=== PATIENT | male | born 1960 | race African-American/Black ===

== ENCOUNTER 2017-10-08 11:50 | Inpatient (IN) | payer OTHER ==
[2017-10-08 12:32] VITALS: BMI 23.2
--- NOTE | 2017-10-08 12:43 | HP ---
COWS - Scale Resting Pulse: 0= CT 80 or Below Sweatin= Chills/Flushing Restless Observation: 0= Sits Still Pupil Size: 0= Normal to Room Light Bone or Joint Aches: 2= Severe Diffuse Aches Runny Nose/ Eye Tearin= Runny Nose/Eyes GI Upset > 30mins: 1= Stomach Cramp Tremor Observation: 1= Tremor [place], Not Seen Yawning Observation: 0= None Anxiety or Irritability: 2=Irritable/Anxious Goose Flesh Skin: 0=Smooth Skin COWS Score: 9 Admission ROS S - HPI Chief Complaint: I'm not ready to , I'm going to kill myself if I keep using Allergies/Adverse Reactions: Allergies Allergy/AdvReac Type Severity Reaction Status Date / Time sulfamethoxazole Allergy Hives Verified 10/08/17 12:36 [From Bactrim] trimethoprim [From Bactrim] Allergy Hives Verified 10/08/17 12:36 History of Present Illness: 57 yo gentleman here for detox from opiates. Patient reports being on [facility] program (70mg) until a month ago. Was also on pain management - recieved last 30 days supply 08/19/17 - was on mscontin 30 bid and oxycodone 20mg qid for over a year - states 'they found heroin ' in his urine and he was discharged. He was given a month of percocet 10/ #90 for thirty days on but told he needs to either detox or find pain management so he is seeking detox at this time. No seizure, no drinking alcohol. He states he discharged himself from the [facility] meth[facility] program. Exam Limitations: Clinical Condition - Ebola screening Have you traveled outside of the country in the last 21 days: No (N) Have you had contact with anyone from an Ebola affected area: No Have you been sick,other than usual withdrawal symptoms: No Do you have a fever: No - Review of Systems Constitutional: Loss of Appetite, Malaise, Night Sweats, Changes in sleep, Weakness EENT: reports: Nose Congestion Respiratory: reports: No Symptoms reported Cardiac: reports: Irregular Heart Rate GI: reports: Nausea, Poor Appetite, Indigestion : reports: Dysuria Musculoskeletal: reports: Back Pain, Joint Pain, Muscle Pain, Joint Stiffness Integumentary: reports: No Symptoms Reported Neuro: reports: Headache Endocrine: reports: No Symptoms Reported Hematology: reports: No Symptoms Reported Psychiatric: reports: Judgement Intact, Mood/Affect Appropiate, Orientated x3, Anxious Other Systems: Reviewed and Negative Patient History - Patient Medical History Hx Anemia: No Hx Asthma: No Hx Chronic Obstructive Pulmonary Disease (COPD): No Hx Cancer: No Hx Cardiac Disorders: Yes (bradycardia - irregular heart beat) Hx Congestive Heart Failure: No Hx Hypertension: Yes Hx Hypercholesterolemia: No Hx Pacemaker: No HX Cerebrovascular Accident: No Hx Seizures: No Hx Dementia: No Hx Diabetes: No Hx Gastrointestinal Disorders: No Hx Liver Disease: No Hx Genitourinary Disorders: No Hx Sexually Transmitted Disorders: No Hx Renal Disease (ESRD): No Hx Thyroid Disease: Yes (? hyperthryoid -given onetime pill two weeks ago) Hx Human Immunodeficiency Virus (HIV): No Hx Hepatitis C: No Hx Depression: No Hx Suicide Attempt: No Hx Bipolar Disorder: No Hx Schizophrenia: Yes (I had a case of schizophrenia after I came out of the ) Other Medical History: degenerative disc disease, chronic back and joint pain, - Patient Surgical History Past Surgical History: Yes Hx Orthopedic Surgery: Yes (bilateral hip replacement 2003, 2013; ) - PPD History Previous Implant?: Yes Documented Results: Positive w/proof PPD to be Administered?: No - Reproductive History Patient is a Female of Child Bearing Age (11 -55 yrs old): No (male) - Smoking Cessation Smoking history: Current every day smoker Have you smoked in the past 12 months: Yes Aproximately how many cigarettes per day: 3 Initiated information on smoking cessation: Yes 'Breaking Loose' booklet given: 10/08/17 (give on floor) - Substance & Tx. History Hx Alcohol Use: No Hx Substance Use: Yes Substance Use Type: Heroin Hx Substance Use Treatment: Yes (was on methadone program 100mg, detox) - Substances Abused heroin Route: Injection Frequency: 3-6 times per week Amount used: 4 bags Age of first use: 16 Date of Last Use: 10/07/17 Non-Rx Methadone Route: Oral Frequency: 1-2 times per week Amount used: 70mg Age of first use: 44 Date of Last Use: 10/06/17 Family Disease History - Family Disease History Family Disease History: [place]: Father ( - little contact), Mother ( , ), Other: Father, Mother, Brother (two - no contact), Sister (two ) Admission Physical Exam [facility] - Vital Signs Vital Signs: Vital Signs - 24 hr 10/08/17 12:31 Temperature 97.4 F L Pulse Rate 46 L Respiratory 20 Rate Blood Pressure 133/78 - Physical General Appearance: Yes: Nourished, Appropriately Dressed, Mild Distress, Anxious HEENTM: Yes: Hearing grossly Normal, Normal ENT Inspection, Normocephalic, Normal Voice, Muffled/Hoarse Voice Respiratory: Yes: Normal Breath Sounds, No Respiratory Distress Neck: Yes: No masses,lesions,Nodules, Supple Breast: Yes: Breast Exam Deferred Cardiology: Yes: Bradycardia, Irregular Abdominal: Yes: Flat, Soft Genitourinary: Yes: Frequency Back: Yes: Normal Inspection, Other (mild kyphosis, uses cane to walk) Musculoskeletal: Yes: full range of Motion, Gait Steady, Back pain, Joint Stiffness, Muscle Pain Extremities: Yes: Normal Inspection, Non-Tender Neurological: Yes: Fully Oriented, Alert, Normal Mood/Affect, Normal Response Integumentary: Yes: Normal Color, Warm, Track Delgado (no abscess noted - left arm ) Lymphatic: Yes: Within Normal Limits - Diagnostic (1) Opiate dependence Current Visit: Yes Status: Acute Qualifiers: Substance use status: uncomplicated Qualified Code(s): F11.20 - Opioid dependence, uncomplicated (2) Bradycardia Current Visit: Yes Status: Chronic (3) Hyperthyroidism Current Visit: Yes Status: Chronic (4) HTN (hypertension) Current Visit: Yes Status: Chronic Qualifiers: Hypertension type: essential hypertension Qualified Code(s): I10 - Essential (primary) hypertension Cleared for Admission [facility] - Detox or Rehab [facility] Level of Care: Medically Managed Detox Regimen/Protocol: Methadone [facility] Breath Alcohol Content Breath Alcohol Content: 0 Urine Drug Screen - Results Drug Screen Negative: No Urine Drug Screen Results: OPI-Opiates, MTD-Methadone
[2017-10-08] MEDS ORDERED: MAGNESIUM HYDROX 2400MG/30ML ORAL SUSPENSION 30 ML CUP PO PRN (12:58)
[2017-10-08] MEDS ORDERED: P-EPHED 60MG/TRIPROLIDI 2.5MG TABLET PO PRN (12:58)
[2017-10-08] MEDS ORDERED: MAGNESIUM CITRATE 300 ML BOTTLE PO PRN (12:58)
[2017-10-08] MEDS ORDERED: guaiFENesin/D-METHORPHAN HB 10 ML UNIT-DOSE CUPS PO PRN (13:04)
[2017-10-08] MEDS ORDERED: ACETAMINOPHEN 325 MG TABLET (FP) PO PRN (13:04)
[2017-10-08] MEDS ORDERED: LOPERAMIDE HCL 2 MG CAPSULE PO PRN (13:05)
[2017-10-08] MEDS ORDERED: IBUPROFEN 400 MG TABLET (FP) PO PRN (13:05)
[2017-10-08] MEDS ORDERED: MAG HYDROX/AL HYDROX/SIMETH 30 ML UNIT-DOSE CUP PO PRN (13:06)
[2017-10-08] MEDS ORDERED: MENTHOL/PHENOL 1 EACH UD MM PRN (13:06)
[2017-10-08] MEDS ORDERED: METHADONE HCL 10 MG TABLET (FOR DETOX USE ONLY) PO ONE ×2 (16:45→23:00)
[2017-10-08] MEDS: THIAMINE HCL 100 MG TABLET (FP) PO SCH (22:25)
[2017-10-08 23:52] LABS: PH,URINE 5.5 (5.0-8.0); URINE APPEARANCE CLEAR; URINE BILIRUBIN NEGATIVE (NEGATIVE); URINE BLOOD NEGATIVE (NEGATIVE); URINE COLOR LT. YELLOW; URINE GLUCOSE (UA) NEGATIVE (NEGATIVE); URINE KETONE NEGATIVE (NEGATIVE); URINE NITRITE NEGATIVE (NEGATIVE); URINE PROTEIN NEGATIVE (NEGATIVE); URINE UROBILINOGEN 0.2 mg/dL (0.2-1.0)
[2017-10-09] MEDS: diazePAM 5 MG TABLET PO PRN ×3 (05:44→22:23)
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
--- NOTE | 2017-10-09 08:58 | EKG ---
Test Reason : Blood Pressure : / mmHG Vent. Rate : 052 BPM Atrial Rate : 052 BPM P-R Int : 162 ms QRS Dur : 092 ms QT Int : 464 ms P-R-T Axes : 066 063 054 degrees QTc Int : 431 ms SINUS BRADYCARDIA POSSIBLE LEFT ATRIAL ENLARGEMENT LEFT VENTRICULAR HYPERTROPHY CANNOT RULE OUT SEPTAL INFARCT , AGE UNDETERMINED ABNORMAL ECG NO PREVIOUS ECGS AVAILABLE Confirmed by MARLEN ODELL, YENNI ([id number]) on 10/09/2017 8:58:10 AM Referred By: Confirmed By:YENNI GEE MD
[2017-10-09] MEDS ORDERED: METHADONE HCL 10 MG TABLET (FOR DETOX USE ONLY) PO ONE (10:00)
[2017-10-09] MEDS: PRENATAL VITAMINS W/ FOLIC ACID TABLET (FP) PO SCH (10:40)
[2017-10-09] MEDS ORDERED: cloNIDine HCL 0.1 MG TABLET PO PRN (11:01)
[2017-10-09] MEDS ORDERED: cloNIDine HCL 0.1 MG TABLET PO ONE (11:02)
[2017-10-09 11:39] LABS: MCH 26.8 pg (25.7-33.7); MCHC 32.4 g/dl (32.0-35.9); MEAN CELL VOLUME 82.5 fl (80-96); MEAN PLT VOLUME 8.5 fl (7.5-11.1); PLATELET COUNT 241 K/MM3 (134-434); RDW 14.8 % (11.9-15.9); WHITE BLOOD COUNT 5.1 K/mm3 (4.0-10.0)
[2017-10-09 12:01] LABS: ALBUMIN 2.9 g/dl (3.4-5.0); ANION GAP 7 (8-16); CALCIUM 8.9 mg/dL (8.5-10.1); CO2 30 mmol/L (21-32); GLUCOSE,RANDOM 93 mg/dL (74-106); SGOT/AST 97 U/L (15-37); SGPT/ALT 113 U/L (12-78)
[2017-10-09 12:15] LABS: ALK PHOS 953 U/L (45-117); BILIRUBIN,TOTAL 1.3 mg/dL (0.2-1.0); CREATININE 0.9 mg/dL (0.7-1.3); TOT PROT 7.3 g/dl (6.4-8.2)
[2017-10-09 12:16] LABS: URINE LEUK ESTERASE Negative (NEGATIVE)
--- NOTE | 2017-10-09 13:18 | PN ---
BHS COWS - Scale Resting Pulse: 0= [place] 80 or Below Sweatin=Flushed/Facial Moisture Restless Observation: 3= Extraneous Movement Pupil Size: 0= Normal to Room Light Bone or Joint Aches: 2= Severe Diffuse Aches Runny Nose/ Eye Tearin= Runny Nose/Eyes GI Upset > 30mins: 1= Stomach Cramp Tremor Observation of Outstretched Hands: 2= Slight Tremor Visible Yawning Observation: 0= None Anxiety or Irritability: 2=Irritable/Anxious Goose Flesh Skin: 0=Smooth Skin COWS Score: 14 BHS Progress Note (SOAP) Subjective: Stomach ache, body ache, bone pain, chills Objective: 10/09/17 13:12 Last Vital Signs Temp Pulse Resp BP Pulse Ox 98.1 F 56 L 16 153/103 10/09/17 09:03 10/09/17 09:03 10/09/17 09:03 10/09/17 09:03 HTN and bradycardia noted Assessment: 10/09/17 13:13 Withdrawal symptoms Plan: Continue detox Encouraged to drink lots of water Bradycardia: asymptomatic, encouraged to drink lots of water and ambulate frequently HTN: takes metoprolol XL 50mg PO daily at home. Not sure why patient is prescribed metoprolol and has dx of bradycardia. Will not resume metoprolol at this time due to bradycardia. Start clonidine 0.1mg PO q8hr prn (first dose stat ), continue to monitor. Follow up with PCP within 1 week post discharge for medication re-evaluation.
[2017-10-09 14:35] LABS: THYROID STIMULATING HORMONE < 0.01 uIU/ml (0.358-3.74)
[2017-10-09] MEDS: hydrOXYzine PAMOATE 50 MG CAPSULE (FP) PO PRN (22:23)
[2017-10-09] MEDS: THIAMINE HCL 100 MG TABLET (FP) PO SCH (22:23)
[2017-10-10] MEDS ORDERED: METHADONE HCL 5 MG TABLET (FOR DETOX USE ONLY) PO ONE (10:00)
[2017-10-10] MEDS: PRENATAL VITAMINS W/ FOLIC ACID TABLET (FP) PO SCH (10:22)
[2017-10-10] MEDS: diazePAM 5 MG TABLET PO PRN ×2 (10:22→22:22)
--- NOTE | 2017-10-10 13:45 | PN ---
BHS COWS - Scale Resting Pulse: 0= [place] 80 or Below Sweatin=Flushed/Facial Moisture Restless Observation: 1= Difficult to Sit Still Pupil Size: 0= Normal to Room Light Bone or Joint Aches: 2= Severe Diffuse Aches Runny Nose/ Eye Tearin= None GI Upset > 30mins: 1= Stomach Cramp Tremor Observation of Outstretched Hands: 2= Slight Tremor Visible Yawning Observation: 1= 1-2x During Session Anxiety or Irritability: 2=Irritable/Anxious Goose Flesh Skin: 3=Piloerection COWS Score: 14 S Progress Note (SOAP) Subjective: Body Aches, Stomach Cramping, Sweating, Chills, Tremors. Objective: PT. A & O X 2 (UNCERTAIN ABOUT DAY / DATE). NO ACUTE DISTRESS. 10/10/17 13:42 Vital Signs Temperature 99.0 F 10/10/17 13:41 Pulse Rate 89 10/10/17 13:41 Respiratory Rate 18 10/10/17 13:41 Blood Pressure 136/93 10/10/17 13:41 O2 Sat by Pulse Oximetry (%) Laboratory Tests 10/08/17 10/09/17 10/09/17 22:19 08:45 08:45 WBC 5.1 RBC 4.80 Hgb 12.8 Hct 39.6 MCV 82.5 MCH 26.8 MCHC 32.4 RDW 14.8 Plt Count 241 MPV 8.5 Sodium 139 Potassium 4.0 Chloride 102 Carbon Dioxide 30 Anion Gap 7 L BUN 11 Creatinine 0.9 Creat Clearance w eGFR > 60 Random Glucose 93 Calcium 8.9 Total Bilirubin 1.3 H AST 97 H ALT 113 H Alkaline Phosphatase 953 H Total Protein 7.3 Albumin 2.9 L TSH < 0.01 L Urine Color Lt. yellow Urine Appearance Clear Urine pH 5.5 Ur Specific [place] 1.025 Urine Protein Negative Urine Glucose (UA) Negative Urine Ketones Negative Urine Blood Negative Urine Nitrite Negative Urine Bilirubin Negative Urine Urobilinogen 0.2 Ur Leukocyte Esterase Negative RPR Titer 10/09/17 08:45 WBC RBC Hgb Hct MCV MCH MCHC RDW Plt Count MPV Sodium Potassium Chloride Carbon Dioxide Anion Gap BUN Creatinine Creat Clearance w eGFR Random Glucose Calcium Total Bilirubin AST ALT Alkaline Phosphatase Total Protein Albumin TSH Urine Color Urine Appearance Urine pH Ur Specific [place] Urine Protein Urine Glucose (UA) Urine Ketones Urine Blood Urine Nitrite Urine Bilirubin Urine Urobilinogen Ur Leukocyte Esterase RPR Titer Nonreactive LABS NOTED. Assessment: 10/10/17 13:43 WITHDRAWAL SYMPTOMS. Plan: CONTINUE DETOX. INCREASE DAILY PO FLUID INTAKE. HEPATIC FUNCTION PANEL TOMORROW AM FOR ABNORMAL ADMISSION LEVELS.
[2017-10-10] MEDS: THIAMINE HCL 100 MG TABLET (FP) PO SCH (22:22)
[2017-10-10] MEDS: hydrOXYzine PAMOATE 50 MG CAPSULE (FP) PO PRN (22:23)
[2017-10-11] MEDS: diazePAM 5 MG TABLET PO PRN ×2 (05:56→12:11)
[2017-10-11] MEDS ORDERED: METHADONE HCL 5 MG TABLET (FOR DETOX USE ONLY) PO ONE (10:00)
[2017-10-11] MEDS: PRENATAL VITAMINS W/ FOLIC ACID TABLET (FP) PO SCH (10:12)
[2017-10-11 10:41] LABS: ALBUMIN 2.9 g/dl (3.4-5.0); BILIRUBIN,DIRECT 0.6 mg/dL (0.0-0.2); BILIRUBIN,TOTAL 1.1 mg/dL (0.2-1.0); TOT PROT 7.4 g/dl (6.4-8.2)
--- NOTE | 2017-10-11 13:31 | PN ---
BHS Progress Note (SOAP) Subjective: Tremors, Sweating, stomach cramping. Objective: PT. A & O X 3, OBSERVED AMBULATING ON UNIT WITH ASSISTANCE OF A CANE. NO ACUTE DISTRESS. 10/11/17 13:28 Vital Signs Temperature 97.9 F 10/11/17 06:20 Pulse Rate 115 H 10/11/17 09:45 Respiratory Rate 18 10/11/17 09:45 Blood Pressure 133/96 10/11/17 09:45 O2 Sat by Pulse Oximetry (%) Laboratory Tests 10/08/17 10/09/17 10/09/17 22:19 08:45 08:45 WBC 5.1 RBC 4.80 Hgb 12.8 Hct 39.6 MCV 82.5 MCH 26.8 MCHC 32.4 RDW 14.8 Plt Count 241 MPV 8.5 Sodium 139 Potassium 4.0 Chloride 102 Carbon Dioxide 30 Anion Gap 7 L BUN 11 Creatinine 0.9 Creat Clearance w eGFR > 60 Random Glucose 93 Calcium 8.9 Total Bilirubin 1.3 H Direct Bilirubin AST 97 H ALT 113 H Alkaline Phosphatase 953 H Total Protein 7.3 Albumin 2.9 L TSH < 0.01 L Urine Color Lt. yellow Urine Appearance Clear Urine pH 5.5 Ur Specific [place] 1.025 Urine Protein Negative Urine Glucose (UA) Negative Urine Ketones Negative Urine Blood Negative Urine Nitrite Negative Urine Bilirubin Negative Urine Urobilinogen 0.2 Ur Leukocyte Esterase Negative RPR Titer 10/09/17 10/11/17 08:45 07:00 WBC RBC Hgb Hct MCV MCH MCHC RDW Plt Count MPV Sodium Potassium Chloride Carbon Dioxide Anion Gap BUN Creatinine Creat Clearance w eGFR Random Glucose Calcium Total Bilirubin 1.1 H Direct Bilirubin 0.6 H AST 74 H D ALT 122 H Alkaline Phosphatase 919 H Total Protein 7.4 Albumin 2.9 L TSH Urine Color Urine Appearance Urine pH Ur Specific [place] Urine Protein Urine Glucose (UA) Urine Ketones Urine Blood Urine Nitrite Urine Bilirubin Urine Urobilinogen Ur Leukocyte Esterase RPR Titer Nonreactive LABS NOTED. RESULTS OF HEPATIC FUNCTION PANEL NOTED. 10/11/17 13:30 Assessment: 10/11/17 13:29 WITHDRAWAL SYMPTOMS. Plan: CONTINUE DETOX.
[2017-10-11] MEDS: THIAMINE HCL 100 MG TABLET (FP) PO SCH (22:08)
[2017-10-11] MEDS: hydrOXYzine PAMOATE 50 MG CAPSULE (FP) PO PRN (22:08)
[2017-10-12 08:58] VITALS: BP 139/92; PULSE 112; TEMP 99
[2017-10-12] MEDS ORDERED: METHADONE HCL 10 MG TABLET (FOR DETOX USE ONLY) PO ONE (10:00)
--- NOTE | 2017-10-12 12:26 | DS ---
[facility] Detox Discharge Summary Admission Date: 10/08/17 Discharge Date: 10/12/17 - History Present History: Opioid Dependence Additional Comments: PATIENT HAS PERSONAL ISSUE TO ATTEND TO AND DOES NOT WISH TO STAY TO COMPLETE DETOX REGIMEN. RISKS OF LEAVING DETOX UNIT PRIOR TO COMPLETION OF DETOX REGIMEN EXPLAINED TO PATIENT. PATIENT ADVISED TO GO IMMEDIATELY TO NEAREST ER SHOULD ANY INTOLERABLE DETOX SYMPTOMS DEVELOP AT ANY TIME. PATIENT LEFT DETOX UNIT IN STABLE MEDICAL CONDITION. Pertinent Past History: HTN, Nicotine Dependence, History of Hyperthyroidism, History of Bilateral Hip Replacement, Osteoarthritis, History of Positive PPD, Schizophrenia, Bradycardia. - Physical Exam Results Vital Signs: Vital Signs Temperature 99 F 10/12/17 08:57 Pulse Rate 112 H 10/12/17 08:57 Respiratory Rate 18 10/12/17 08:57 Blood Pressure 139/92 10/12/17 08:57 O2 Sat by Pulse Oximetry (%) Pertinent Admission Physical Exam Findings: WITHDRAWAL SYMPTOMS. Laboratory Tests 10/08/17 10/09/17 10/09/17 22:19 08:45 08:45 WBC 5.1 RBC 4.80 Hgb 12.8 Hct 39.6 MCV 82.5 MCH 26.8 MCHC 32.4 RDW 14.8 Plt Count 241 MPV 8.5 Sodium 139 Potassium 4.0 Chloride 102 Carbon Dioxide 30 Anion Gap 7 L BUN 11 Creatinine 0.9 Creat Clearance w eGFR > 60 Random Glucose 93 Calcium 8.9 Total Bilirubin 1.3 H Direct Bilirubin AST 97 H ALT 113 H Alkaline Phosphatase 953 H Total Protein 7.3 Albumin 2.9 L TSH < 0.01 L Urine Color Lt. yellow Urine Appearance Clear Urine pH 5.5 Ur Specific [place] 1.025 Urine Protein Negative Urine Glucose (UA) Negative Urine Ketones Negative Urine Blood Negative Urine Nitrite Negative Urine Bilirubin Negative Urine Urobilinogen 0.2 Ur Leukocyte Esterase Negative RPR Titer 10/09/17 10/11/17 08:45 07:00 WBC RBC Hgb Hct MCV MCH MCHC RDW Plt Count MPV Sodium Potassium Chloride Carbon Dioxide Anion Gap BUN Creatinine Creat Clearance w eGFR Random Glucose Calcium Total Bilirubin 1.1 H Direct Bilirubin 0.6 H AST 74 H D ALT 122 H Alkaline Phosphatase 919 H Total Protein 7.4 Albumin 2.9 L TSH Urine Color Urine Appearance Urine pH Ur Specific [place] Urine Protein Urine Glucose (UA) Urine Ketones Urine Blood Urine Nitrite Urine Bilirubin Urine Urobilinogen Ur Leukocyte Esterase RPR Titer Nonreactive LABS NOTED. - Treatment Hospital Course: Detoxed Safely - Medication Discharge Medications: Ambulatory Orders Metoprolol Succinate [Toprol Xl] 50 mg PO DAILY 10/08/17 - Diagnosis (1) Opiate dependence Status: Acute Qualifiers: Substance use status: uncomplicated Qualified Code(s): F11.20 - Opioid dependence, uncomplicated (2) History of total replacement of both hip joints Status: Acute (3) Osteoarthritis (arthritis due to wear and tear of joints) Status: Chronic Qualifiers: Osteoarthritis location: unspecified site Osteoarthritis type: unspecified Qualified Code(s): M19.90 - Unspecified osteoarthritis, unspecified site (4) Bradycardia Status: Chronic (5) HTN (hypertension) Status: Chronic Qualifiers: Hypertension type: essential hypertension Qualified Code(s): I10 - Essential (primary) hypertension (6) Hyperthyroidism Status: Chronic (7) Nicotine dependence Status: Chronic Qualifiers: Nicotine product type: cigarettes Substance use status: uncomplicated Qualified Code(s): F17.210 - Nicotine dependence, cigarettes, uncomplicated (8) Schizophrenia, residual type Status: Chronic - AMA Did Patient Leave Against Medical Advice: Yes (PT HAD PERSONAL ISSUE AND DID NOT WISH TO STAY TO COMPLETE DETOX REGIMEN.)
[2017-10-13] MEDS ORDERED: METHADONE HCL 5 MG TABLET (FOR DETOX USE ONLY) PO ONE (06:00)
== END 2017-10-12 08:50 | disposition home or self-care (01) | DRG 773 ==
LOC: YASAS 11:50 → Y3N 15:26
PROVIDERS: ADMIT Internal Medicine; ATTEND Internal Medicine
PROC: HZ2ZZZZ Detoxification Services for Substance Abuse Treatment (ICD-10-PCS; principal; 2017-10-08)
DX: F11.20 Opioid dependence, uncomplicated (principal); F17.210 Nicotine dependence, cigarettes, uncomplicated; F20.9 Schizophrenia, unspecified; I10 Essential (primary) hypertension; E05.90 Thyrotoxicosis, unspecified without thyrotoxic crisis or storm; M19.90 Unspecified osteoarthritis, unspecified site; R00.1 Bradycardia, unspecified
CPT/HCPCS: 36415; 71020-TC; 80053; 80076; 81003; 84443; 85027; 86593; 93005; 93010